=== PATIENT | male | born 1975 | race Caucasian/White ===

== ENCOUNTER → 2020-08-26 14:47 | Outpatient (BNVA) | payer OTHER, SELFPAY | PROVIDERS: Visit Provider Student in an Organized Health Care Education/Training Program | DX: Z76.89 Persons encountering health services in other specified circumstances (principal) ==

== ENCOUNTER → 2020-09-15 12:57 | Outpatient (BNVA) | payer OTHER, MEDICAID, SELFPAY | PROVIDERS: Visit Provider Internal Medicine Cardiovascular Disease | DX: R07.89 Other chest pain (principal) | CPT/HCPCS: 93005 ==

== ENCOUNTER → 2020-09-20 07:54 | Outpatient (REF) | payer OTHER, MEDICAID, SELFPAY ==
--- NOTE | 2020-09-20 07:56 | CA_ITS ---
Acquisition Time: 2020-09-20 07:58:48 Total Exercise Time: 00:12:45 Test Indications: Chest Pain Medications: ENBREL Protocol: OSITO Max HR: 176 BPM 99% of Pred: 177 BPM Max BP: 152/080 mmHG Max Work Load: 14.8 METS Exeecise stress test using Osito protocol, total of 12 min 45 sec. METS 14.8. TAPHR up to 90 %. Pt tolerated well, denies any anginal sx . EKG without any arrhythmias. No ischemic changes seen onEKG during exercise or in recovery. Normotensive response to exercise. Test reviewed with Dr. Solano. Referred By: Scott Yip Overread By: Pawel Clayton
== END ==
LOC: HO.CARD 07:54
PROVIDERS: Visit Provider Internal Medicine Cardiovascular Disease
DX: R07.89 Other chest pain (principal)
CPT/HCPCS: 93017

== ENCOUNTER → 2020-10-14 12:43 | Outpatient (BNVA) | payer OTHER, MEDICAID, SELFPAY | PROVIDERS: Visit Provider Internal Medicine Cardiovascular Disease ==

== ENCOUNTER → 2020-10-19 08:03 | Outpatient (BNVA) | payer OTHER, MEDICAID, SELFPAY | PROVIDERS: Visit Provider Internal Medicine Gastroenterology ==

== ENCOUNTER 2020-12-08 11:00 | Day surgery (SDC) | payer OTHER, MEDICAID, SELFPAY ==
[2020-12-03 15:32] VITALS: BMI 23.0
[2020-12-08 11:51] VITALS: BP 122/96; PULSE 76; RESP 18; TEMP 36.1
--- NOTE | 2020-12-08 12:31 | P.HPSUR_ITS ---
Pre-Procedural Eval Section B Chief Complaint: Diarhea, GERD Relevant Family History (Specify if Yes): No Relevant Social History: Tobacco Use Present Medications: see Short Stay Collaborative assessment Medical History: Significant History (psoriatic artrhropathy) History of Previous Operations: No relevant previous surgery Allergies: Allergies Allergy/AdvReac Type Severity Reaction Status Date / Time No Known Allergies Allergy Verified 10/19/20 08:04 Review of Systems Sugical H&P ROS: Negative: Constitution, Cardiovascular, Respiratory, Neurological, Psychiatric, Hem-Onc, Allergic/Immunologic, Gastrointestinal, Genitourinary, Musculoskeletal, Integumentary, Endocrine and Eye s/Ears/Nose/Throat Exam Surgical H&P Exam: Normal: HEENT, Normal: Heart, Normal: Lungs, Normal: Extremities, Normal: Abdomen, Normal: Skin and Normal: Neurological Plan Diagnosis/Plan: Unchanged I have reviewed the history and physical and performed a pertinent physical examination on my patient. No changes have occurred unless specified.
[2020-12-08] MEDS: Lactated Ringers 1,000 ML 20 ML IVCONT (13:00)
--- NOTE | 2020-12-08 13:15 | P.OP_ITS ---
Operative Note Operative Note Date of Service: 12/08/20 Narrative: Operative Information Procedure Description: EGD, Colonoscopy FLEXIBLE TRANSORAL UPPER GASTROINTESTINAL ENDOSCOPY AND COLONOSCOPY PROCEDURE NOTE UPPER ENDOSCOPY Consent: Indications for the procedure and potential complications of bleeding, perforation, reaction to medications and missed diagnosis were discussed with the patient and informed consent was obtained. Instrument: Olympus GIF H 190 J mid size upper endoscope Monitoring: Vital signs and clinical assessment, continuous EKG monitoring, Pulse oximetry, Carbon Dioxide monitoring and blood pressure monitoring were done throughout the procedure. Procedure: The patient was placed in the left lateral decubitis position and pre-procedure medications were administered and a bite block was placed. The endoscope was inserted into the mouth and advanced under direct vision to the third part of duodenum. A careful inspection was made as the upper endoscope was withdrawn including a retroflexed examination of the proximal stomach; Findings and interventions are described below. Findings: Larynx:normal Esophagus: GE junction at 45 cm, diaphragm hiatus at 45 cm, LA grade A erosive esophagitis noted, bx taken from GEJ and random esophagus Stomach: patchy gastritis with scars from prior healed erosions noted. Biopsies were obtained. Grade 2 flap valve on retroflexed examination of the cardia. Duodenum: Normal bulb and descending duodenum, bx taken Intervention: Biopsies as noted above COLONOSCOPY Instrument: Olympus variable stiffness adult scope 190L Colonoscopy Monitoring: Vital signs and clinical assessment, continuous EKG monitoring, Pulse oximetry, Carbon Dioxide monitoring and blood pressure monitoring were done throughout the procedure. Colon withdrawal time was 14 minutes. Procedure: The patient was placed in the left lateral decubitis position and pre-procedure medications were administered. After a digital rectal examination of the ano-rectum, the video colonoscope was inserted into the rectum and advanced through the colon to the cecum/TI. The colonoscope was slowly withdrawn in a retrograde panoramic fashion and the colon mucosa was carefully examined including a retroflexed view of the rectum. Findings and interventions are described below. Procedure Difficulty:easy Findings: Terminal Ileum-normal, bx taken Random colon bx taken Cecum:diminutive polyp remvoed with forceps, another 10 mm sessile polyp removed with cold snare Ascending Colon: x 2 sessile polyps 6-8 mm removed with forceps Transverse Colon -normal Descending Colon:normal Sigmoid Colon: normal Rectum: Retroflexion with small internal hemorrhoids, grade I Anorectum - normal Colon preparation: [place] Bowel Preparation Scale Right colon; 3 Transverse colon: 3 Left colon; 3 (0 = Unprepared colon segment with mucosa not seen due to solid stool that cannot be cleared. 1 = Portion of mucosa of the colon segment seen, but other areas of the colon segment not well seen due to staining, residual stool and/or opaque liquid. 2 = Minor amount of residual staining, small fragments of stool and/or opaque liquid, but mucosa of colon segment seen well. 3 = Entire mucosa of colon segment seen well with no residual staining, small fragments of stool or opaque liquid) Impression and Post Procedure Diagnosis: Endoscopy Findings: erosive esophagitis gastritis Colonoscopy Findings: polyps internal hemorrhoids Plan: Await Pathology results Repeat Colonoscopy in 3-5 years or earlier if clinically indicated High fiber diet leaflet avoid straining at stool, epsom salts and sitz bath, anusol supps or cream check PPI history, if not taking commence, also check nsaid hx, if h pylori pos then will treat Above findings were reviewed with the patient and relevant handouts were provided if indicated.
--- NOTE | 2020-12-08 13:15 | PM.OP ---
Brief Operative Note Date of Service: 12/08/20 Pre-op diagnosis: GERD, diarrhea Post-op diagnosis: same Procedure: see op note Surgeon: Andrea Wills MD Anesthesia: MAC Estimated blood loss (mL): 0 Condition: stable Disposition: PACU
--- NOTE | 2020-12-08 13:47 | HO.ANESPROP2 ---
[facility] Active Problems Active Problems: All Active Problems (Updated 10/19/20 @ 08:43 by Andrea Wills MD) Chest pain (Acute) Diarrhea (Acute) Chronic GERD (Acute) Psoriatic arthritis (Acute) Past Medical History Medical History Psoriatic arthritis Family History Family History Father Diabetes Mother Diabetes Surgical History Surgical History No significant past surgical history Social History Social History Household Members: None Alcohol intake: current Alcohol intake frequency: a few times a month Alcohol type: beer Smoking Status: Current every day smoker Packs Per Day: 1 Cigarettes Per Day: 20.0 Use of substances other than those prescribed or required for medical reasons: No Advance Directives Information Provided: No Current occupational status: employed Current occupation: [employer] Allergies Allergy/AdvReac Type Severity Reaction Status Date / Time No Known Allergies Allergy Verified 10/19/20 08:04 Active Medications: Current Medications Generic Name Dose Route Start Last Admin Trade Name Freq PRN Reason Stop Dose Admin Lactated Ringer's 1,000 mls @ 20 mls/hr 12/08/20 13:45 12/08/20 13:00 Lr IVCONT 20 mls/hr .Q24H JASMINE Administration Exam Exam Date and Time: December 08, 2020 1347 Height,Weight and Vital Signs: Height 6 ft 2 in Weight 81.3 kg Last Vital Signs Temp 97 F 12/08/20 11:51 Pulse 76 12/08/20 11:51 Resp 18 12/08/20 11:51 BP 122/96 H 12/08/20 11:51 Airway Mallampati Class: II TM Dist: >3cm Neck ROM: Full Heart: RRR Lungs: CTA
[2020-12-08 14:08] VITALS: BP 85/59; PULSE 62; RESP 14; TEMP 36.2; O2SAT 97
[2020-12-08 14:23] VITALS: BP 125/85; PULSE 70; RESP 18; TEMP 36.2; O2SAT 98
== END 2020-12-08 14:58 | disposition home or self-care (01) ==
PROVIDERS: Visit Provider Internal Medicine Gastroenterology
PROC: (CPT 45385; principal; 2020-12-08 11:50)
DX: R19.7 Diarrhea, unspecified (principal); D12.0 Benign neoplasm of cecum; D12.2 Benign neoplasm of ascending colon; K64.0 First degree hemorrhoids; K21.00 Gastro-esophageal reflux disease with esophagitis, without bleeding; K29.50 Unspecified chronic gastritis without bleeding; K44.9 Diaphragmatic hernia without obstruction or gangrene; L40.50 Arthropathic psoriasis, unspecified; F17.210 Nicotine dependence, cigarettes, uncomplicated; Z79.899 Other long term (current) drug therapy
CPT/HCPCS: 45385; 45380; 43239; 88305; 88342; J3010

== ENCOUNTER → 2021-02-22 11:11 | Outpatient (BNVA) | payer OTHER, MEDICAID, SELFPAY | PROVIDERS: Visit Provider Internal Medicine Gastroenterology ==

== ENCOUNTER 2021-03-30 15:37 | Outpatient (REF) | payer OTHER, MEDICAID, SELFPAY ==
[2021-03-30 17:03] LABS: MANUAL DIFF FLAG NO
[2021-03-30 17:05] LABS: Basophils Percent Auto 0.4 % (0-2); Eosinophils Absolute Auto 0.1 X10*3/uL (0.0-0.4); Eosinophils Percent Auto 1.6 % (0-4); Hematocrit 46.5 % (42-52); Hemoglobin 15.7 g/dl (14.0-18.0); Imm Gran Abs Auto 0.02 X10*3/uL (0.00-0.03); Imm Gran Pct Auto 0.3 % (0.0-0.4); Lymphocytes Absolute Auto 1.7 X10*3/uL (1.2-4.9); Mean Corpuscular HGB Conc 33.8 g/dl (31.0-36.0); Mean Corpuscular Hemoglobin 30.4 pg (27.0-33.0); Mean Corpuscular Volume 90.1 fL (80-98); Mean Platelet Volume 11.8 fL (9.4-12.4); Monocytes Absolute Auto 0.5 X10*3/uL (0.1-1.2); Neutrophils Absolute Auto 5.1 X10*3/uL (2.0-8.3); Neutrophils Percent Auto 67.7 % (45-73); Platelet Count 223 X10*3/uL (160-400); Red Blood Count 5.16 X10*6/uL (4.60-5.80); Red Cell Distribution Width 11.8 % (11.0-16.0); White Blood Count 7.5 X10*3/uL (4.8-10.8)
[2021-03-30 17:47] LABS: Erythrocyte Sedimentation Rate 3 MM/HR (0-15)
[2021-03-30 17:53] LABS: Alanine Aminotransferase 38 U/L (0-40); Albumin Level 4.3 g/dL (3.5-5.0); Alkaline Phosphatase 101 U/L (39-117); Anion Gap 14 (12-20); Aspartate Amino Transferase 25 U/L (5-37); Blood Urea Nitrogen 10 mg/dL (9-16); Calcium 9.5 mg/dL (8.4-10.2); Carbon Dioxide 23 mmol/L (22-29); Chloride 107 mmol/L (96-108); Estimated Glomerular Filt Rate > 60; Glucose Random 131 mg/dL (60-115); Potassium 4.4 mmol/L (3.3-5.1); Sodium 140 mmol/L (135-145); Total Protein 7.2 g/dL (6.5-8.0)
[2021-04-02 01:51] LABS: TS Negative Control Passed; TS Panel A 16; TS Panel B 4; TS Positive Control Passed; TSpotTB POSITIVE (SeeBelow)
== END 2021-03-30 15:38 | disposition home or self-care (01) ==
LOC: HO.LAB 15:37
PROVIDERS: Visit Provider Student in an Organized Health Care Education/Training Program
DX: L40.50 Arthropathic psoriasis, unspecified (principal)
CPT/HCPCS: 36415; 80053; 85025; 85652; 86140; 86481

== ENCOUNTER 2021-04-07 10:52 | Outpatient (REF) | payer OTHER, MEDICAID, SELFPAY ==
--- NOTE | ~2021-04-07 | XR_ITS ---
EXAMINATION: XR CHEST CLINICAL INFORMATION: Positive TB test COMPARISON: None TECHNIQUE: 2 views of the chest were obtained. FINDINGS: The cardiac and mediastinal contours are normal. The lungs are clear. There is no pleural effusion or pneumothorax. There is an old left sixth rib fracture. Bony structures are otherwise unremarkable. XR/XR chest 2V IMPRESSION: No evidence of TB in the chest.
[2021-04-10 14:05] LABS: TS Negative Control Passed; TS Panel A 16; TS Panel B 6; TS Positive Control Passed; TSpotTB POSITIVE (SeeBelow)
== END 2021-04-07 10:53 | disposition home or self-care (01) ==
LOC: HO.LAB 10:52
PROVIDERS: Absent Provider Internal Medicine Gastroenterology; Visit Provider Student in an Organized Health Care Education/Training Program
DX: R76.11 Nonspecific reaction to tuberculin skin test without active tuberculosis (principal)
CPT/HCPCS: 36415; 71046; 86481

== ENCOUNTER 2021-04-15 11:08 | Outpatient (REF) | payer OTHER, MEDICAID, SELFPAY ==
[2021-04-15 12:18] LABS: Hematocrit 46.9 % (42-52); Hemoglobin 16.3 g/dl (14.0-18.0); Mean Corpuscular HGB Conc 34.8 g/dl (31.0-36.0); Mean Corpuscular Hemoglobin 30.9 pg (27.0-33.0); Mean Platelet Volume 11.3 fL (9.4-12.4); Platelet Count 225 X10*3/uL (160-400); Red Blood Count 5.27 X10*6/uL (4.60-5.80); Red Cell Distribution Width 11.8 % (11.0-16.0); White Blood Count 7.4 X10*3/uL (4.8-10.8)
[2021-04-15 12:35] LABS: Alanine Aminotransferase 37 U/L (0-40); Albumin Level 4.4 g/dL (3.5-5.0); Alkaline Phosphatase 108 U/L (39-117); Anion Gap 15 (12-20); Aspartate Amino Transferase 24 U/L (5-37); Bilirubin Direct 0.2 mg/dL (0.0-0.5); Bilirubin Total 0.5 mg/dL (0.0-1.0); Blood Urea Nitrogen 9 mg/dL (9-16); Calcium 9.5 mg/dL (8.4-10.2); Carbon Dioxide 23 mmol/L (22-29); Chloride 108 mmol/L (96-108); Estimated Glomerular Filt Rate > 60; Glucose Random 127 mg/dL (60-115); Potassium 4.6 mmol/L (3.3-5.1); Sodium 141 mmol/L (135-145); Total Protein 7.3 g/dL (6.5-8.0)
[2021-04-15 12:58] LABS: Syphilis Screen Nonreactive (Nonreactive)
[2021-04-19 04:17] LABS: HIV AB/AG Nonreactive (Nonreactive); HIV Num 1 0.07 S/CO (0.00-0.99)
== END 2021-04-15 11:09 | disposition home or self-care (01) ==
LOC: HO.LAB 11:08
PROVIDERS: Absent Provider Internal Medicine Gastroenterology; Visit Provider Internal Medicine
DX: Z11.4 Encounter for screening for human immunodeficiency virus [HIV] (principal); R76.11 Nonspecific reaction to tuberculin skin test without active tuberculosis
CPT/HCPCS: 36415; 80048; 80076; 85027; 86780; 87389

== ENCOUNTER → 2021-05-16 14:21 | Outpatient (BNVA) | payer OTHER, MEDICAID, SELFPAY | PROVIDERS: Visit Provider Internal Medicine ==

== ENCOUNTER 2021-05-19 10:30 | Outpatient (REF) | payer OTHER, MEDICAID, SELFPAY ==
--- NOTE | ~2021-05-19 | CT_ITS ---
EXAMINATION: CT CHEST WITH CONTRAST CLINICAL INFORMATION: Positive TB test. COMPARISON: Previous chest x-ray March 2021 . TECHNIQUE: Multidetector volumetric CT imaging of the chest was obtained after the administration of 65 mL of Omnipaque 350 intravenous contrast without immediate adverse reactions. Axial MIP volume rendering provided. Sagittal and coronal reformatted images were obtained. This CT examination was performed using dose optimization techniques as appropriate, variously including the following: *Automated exposure control *Adjustment of mA and/or kV according to patient size (this includes techniques or standardized protocols for targeted exams where dose is matched to indication/reason for exam; i.e. extremities or head) *Use of iterative reconstruction technique DLP: 152 mGy-cm FINDINGS: LUNGS: There is a 2 mm left upper lobe nodule axial image 59 series 5. There is a 2 x 5 mm peripheral or subpleural right middle lobe nodule adjacent to the minor fissure probably representing a subpleural lymph node axial image 110 series 5. MEDIASTINUM: The mediastinum is normal. PLEURA: There is no pleural effusion. No pleural mass or thickening. AXILLA: No lymphadenopathy. UPPER ABDOMEN: There may be fatty infiltration of the liver. OSSEOUS STRUCTURES: Unremarkable. CT/CT chest w con IMPRESSION: 2 small pulmonary nodules. Otherwise unremarkable exam. No evidence of TB in the chest. According to the UPDATED 2017 Fleischner Society recommendations, the advised follow-up imaging for left 6 mm nodule: Low risk, no chest CT follow-up and high risk, optional chest CT follow-up in one year.
[2021-05-19] MEDS: iohexoL 350 MG/ML 100 ML INFUS..BTL IV (11:38)
== END 2021-05-19 10:31 | disposition home or self-care (01) ==
LOC: HO.CT 10:30
PROVIDERS: PCP Physician Assistant; Visit Provider Internal Medicine
DX: R76.11 Nonspecific reaction to tuberculin skin test without active tuberculosis (principal)
CPT/HCPCS: 71260; Q9967

== ENCOUNTER → 2021-06-06 11:36 | Outpatient (BNVA) | payer OTHER, MEDICAID, SELFPAY | PROVIDERS: Visit Provider Internal Medicine ==